=== PATIENT | male | born 2000 | race Caucasian/White ===

== ENCOUNTER 2021-05-14 22:49 | Emergency (ER) | payer OTHER ==
[2021-05-14 23:18] VITALS: BP 132/77; PULSE 90; TEMP 98.7; BMI 24.6
[2021-05-15] MEDS ORDERED: ONDANSETRON 4 MG/2 ML VIAL ONE (01:12)
[2021-05-15] MEDS ORDERED: SODIUM CHLORIDE 0.9% 500 ML INFUS.BAG IV ONE (01:39)
[2021-05-15] MEDS ORDERED: ONDANSETRON 4 MG/2 ML VIAL IVPUSH ONE (01:39)
[2021-05-15 01:59] LABS: BASO % 0.1 % (0-2.0); HEMATOCRIT 41.2 % (35.4-49); HEMOGLOBIN 14.1 GM/dL (11.7-16.9); LYMPH % 6.9 % (8-40); MCH 31.1 pg (25.7-33.7); MCHC 34.3 g/dl (32.0-35.9); MEAN CELL VOLUME 90.6 fl (80-96); MEAN PLT VOLUME 7.5 fl (7.5-11.1); MONO % 3.3 % (3.8-10.2); NEUT % 89.7 % (42.8-82.8); PLATELET COUNT 257 10^3/uL (134-434); RBC 4.54 M/mm3 (4.00-5.60); RDW 13.1 % (11.9-15.9); WHITE BLOOD COUNT 12.3 K/mm3 (4.0-10.0)
[2021-05-15 02:18] LABS: CALCIUM 9.4 mg/dL (8.5-10.1)
[2021-05-15 02:19] LABS: BLOOD UREA NITROGEN 10.6 mg/dL (7-18)
[2021-05-15 02:22] LABS: CREATININE 0.9 mg/dL (0.55-1.3)
[2021-05-15 02:23] LABS: BILIRUBIN,TOTAL 1.4 mg/dL (0.2-1)
[2021-05-15] MEDS ORDERED: HALOPERIDOL LACTATE 5 MG/ML IV ONE ×2 (02:35→03:38)
[2021-05-15] MEDS ORDERED: HALOPERIDOL LACTATE 5 MG/ML IM ONE ×2 (02:35)
[2021-05-15] MEDS ORDERED: HALOPERIDOL LACTATE 5 MG/ML ONE (02:45)
== END 2021-05-15 05:26 | disposition home or self-care (01) ==
LOC: JER 22:49
PROC: 3E023GC Introduction of Other Therapeutic Substance into Muscle, Percutaneous Approach (ICD-10-PCS; principal; 2021-05-14)
PROC: 3E033GC Introduction of Other Therapeutic Substance into Peripheral Vein, Percutaneous Approach (ICD-10-PCS; 2021-05-14)
PROC: 3E033GC Introduction of Other Therapeutic Substance into Peripheral Vein, Percutaneous Approach (ICD-10-PCS; 2021-05-14)
DX: F12.188 Cannabis abuse with other cannabis-induced disorder (principal)
CPT/HCPCS: 36415; 80053; 85025; 93005; 93010; 99284-25